=== PATIENT | male | born 1975 | race Caucasian/White ===

== ENCOUNTER 2021-02-20 00:33 | Emergency (ER) | payer SELFPAY ==
--- NOTE | ~2021-02-20 | CT_ITS ---
EXAMINATION: CT ABDOMEN AND PELVIS WITHOUT CONTRAST CLINICAL INFORMATION: Left flank pain COMPARISON: None TECHNIQUE: Multidetector volumetric imaging was performed from the superior aspect of the liver through the pubic symphysis. Sagittal and coronal reformatted images were obtained on the technologist's workstation. This CT examination was performed using dose optimization techniques as appropriate, variously including the following: *Automated exposure control *Adjustment of mA and/or kV according to patient size (this includes techniques or standardized protocols for targeted exams where dose is matched to indication/reason for exam; i.e. extremities or head) *Use of iterative reconstruction technique DLP: 1117 mGy-cm FINDINGS: LUNG BASES: The visualized lung bases are unremarkable. LIVER, GALLBLADDER, AND BILIARY TREE: The liver is normal in size, shape, and attenuation. No focal hepatic lesion or biliary ductal dilatation is present. Gallbladder unremarkable. PANCREAS: Unremarkable. SPLEEN: Unremarkable. ADRENAL GLANDS: Unremarkable. KIDNEYS AND URETERS: There is a 4 mm calculus within the distal left ureter, approximately 1 cm proximal to the ureterovesical junction associated mild upstream hydroureter and pelvocaliectasis, along with mild perinephric stranding. No additional urinary calculi. BLADDER: Unremarkable. GASTROINTESTINAL TRACT: The small and large bowel are unremarkable. The appendix is unremarkable. ABDOMINAL WALL: No significant hernia is appreciated. LYMPH NODES: Normal. VASCULAR: Unremarkable. PELVIC VISCERA: Unremarkable. OSSEOUS STRUCTURES: Unremarkable. CT/CT abdomen pelvis wo con IMPRESSION: There is a 4 mm calculus within the distal left ureter, 1 cm proximal to the ureterovesical junction associated mild upstream hydroureter and pelvocaliectasis.
[2021-02-20] MEDS: Acetaminophen 325 MG TABLET 650 MG PO (01:20)
[2021-02-20 01:21] VITALS: BP 168/93; PULSE 88; RESP 20; TEMP 36.6; O2SAT 96; BMI 36.9
[2021-02-20 01:26] LABS: Appearance Urine CLEAR; Color Urine YELLOW; Glucose Urine UA NEG (NEG); Leukocyte Esterase Urine NEG (NEG); Nitrite Urine NEG (NEG); Specific Gravity - Urine 1.025 (1.005-1.025); UACC Culture Trigger NO; Urine Blood 1+ (NEG); Urine Ketones NEG (NEG); Urine Protein NEG (NEG-TRACE)
[2021-02-20 01:43] LABS: Bacteria Urine 1+ /LPF; Mucus Urine 1+ /LPF; Squamous Epithelial Cell Urine 1+ /LPF
[2021-02-20 04:13] LABS: MANUAL DIFF FLAG NO
[2021-02-20 04:14] LABS: Basophils Absolute Auto 0.1 X10*3/uL (0.0-0.2); Basophils Percent Auto 0.5 % (0-2); Eosinophils Absolute Auto 0.1 X10*3/uL (0.0-0.4); Hematocrit 40.6 % (42.0-52.0); Hemoglobin 14.4 g/dl (14.0-18.0); Imm Gran Abs Auto 0.02 X10*3/uL (0.00-0.03); Imm Gran Pct Auto 0.2 % (0.0-0.4); Lymphocytes Absolute Auto 2.2 X10*3/uL (1.2-4.9); Lymphocytes Percent Auto 22.7 % (20-40); Mean Corpuscular HGB Conc 35.5 g/dl (31.0-36.0); Mean Corpuscular Hemoglobin 31.7 pg (27.0-33.0); Mean Corpuscular Volume 89.4 fL (80.0-98.0); Mean Platelet Volume 9.1 fL (9.4-12.4); Monocytes Absolute Auto 0.8 X10*3/uL (0.1-1.2); Monocytes Percent Auto 8.5 % (2-11); Neutrophils Absolute Auto 6.4 x10*3/uL (2.0-8.3); Neutrophils Percent Auto 67.1 % (45-73); Platelet Count 229 X10*3/uL (160-400); Red Blood Count 4.54 X10*6/uL (4.60-5.80); Red Cell Distribution Width 12.4 % (11.0-16.0); White Blood Count 9.5 X10*3/uL (4.8-10.8)
[2021-02-20 04:44] LABS: Alanine Aminotransferase 88 U/L (0-40); Albumin Level 4.4 g/dL (3.5-5.0); Alkaline Phosphatase 103 U/L (39-117); Anion Gap 13 (12-20); Aspartate Amino Transferase 39 U/L (5-37); Bilirubin Total 0.5 mg/dL (0.0-1.0); Blood Urea Nitrogen 17 mg/dL (9-16); Calcium 9.3 mg/dL (8.4-10.2); Carbon Dioxide 21 mmol/L (22-29); Chloride 110 mmol/L (96-108); Creatinine Clr Calc Pharmacy 115.6; Estimated Glomerular Filt Rate > 60; Glucose Random 106 mg/dL (60-115); Potassium 4.2 mmol/L (3.3-5.1); Sodium 140 mmol/L (135-145); Total Protein 7.7 g/dL (6.5-8.0)
--- NOTE | 2021-02-20 05:43 | ED.MALEGU ---
HPI - Male Genitourinary General Chief complaint: Urogenital-Male Stated complaint: stomach pain Time Seen by Provider: 02/20/21 05:34 Source: patient Mode of arrival: ambulatory Limitations: no limitations History of Present Illness HPI Narrative: Patient comes to the emergency room complaining left lower quadrant pain, mild dysuria, left inguinal pain for 3 days. Patient states that he has history of UTIs. Related Data Previous Rx's Medication Instructions Recorded ketorolac 10 mg tablet 10 mg PO QID PRN 5 Days #14 tab 02/20/21 ondansetron HCl 4 mg tablet 4 mg PO Q8H PRN #10 tab 02/20/21 (Zofran) tamsulosin 0.4 mg capsule 0.4 mg PO DAILY #7 cap 02/20/21 Allergies Allergy/AdvReac Type Severity Reaction Status Date / Time No Known Allergies Allergy Verified 02/20/21 01:04 [No Known Allergies*] Review of Systems Review of Systems: Constitutional : No Weight loss, No Fever, No Chills, No Night Sweats, No Fatigue, No Malaise ENT/Mouth : No Hearing loss, No Ear Pain, No Nasal Congestion, No Sinus Pain, No Hoarseness, No sore throat, No Rhinorrhea, No Swallowing Difficulty Eyes: No Eye Pain, No Swelling, No Redness, No Foreign Body, No Discharge, No Vision Changes Cardiovascular : No Chest Pain, No SOB, No Dyspnea on Exertion, No Orthopnea, No Edema, No Palpitations Respiratory : No Cough, No Sputum, No Wheezing, No Smoke Exposure, No Dyspnea Gastrointestinal : No Nausea, No Vomiting, No Diarrhea, No Constipation, complaining of intermittent left lower abdominal/flank Pain, No Hematochezia, No Melena Genitourinary : no irregular bleeding, complaining of dysuria and urinary frequency No Hematuria, No Urinary Incontinence, No Urgency, No Flank Pain, No Urinary Flow Changes, No Hesitancy Musculoskeletal : No joint pain, No Myalgias, No Joint Swelling Skin : No Skin Lesions, No rash Neuro : No Weakness, No Numbness, No Paresthesias, No Loss of Consciousness, No Dizziness, No Headache Psych : No Anxiety/Panic, No Depression, No SI/HI/AH/VH, No Social Issues, Heme/Lymph: No Bruising, No Bleeding,No Lymphadenopathy Endocrine : No Polyuria, No Polydipsia, No Temperature Intolerance PMFSH Social History Social History Advance Directives: No Physical Exam Vital Signs: Vital Signs: Last Vital Signs Temp 98 F 02/20/21 01:21 Pulse 88 02/20/21 01:21 Resp 20 02/20/21 01:21 BP 168/93 H 02/20/21 01:21 Pulse Ox 96 02/20/21 01:21 BMI result Body Mass Index 36.9 Const: Other: Appearance: Alert. Oriented X3. No acute distress. Well-appearing Eyes: Pupils equal, round and reactive to light. ENT: Pharynx normal. Neck: Normal inspection. Neck supple. No lymph nodes noted. No crepitus CVS: Normal heart rate and rhythm. Pulses normal. Normal S1 and S2 Respiratory: No respiratory distress. Breath sounds normal. No Wheezing. No rales Abdomen: Soft and nontender. No rigidity. No distention. , complaining of left lower quadrant pain on deep palpation Back: No CVA tenderness Skin: Skin warm and dry. Normal skin color. Normal skin turgor. Extremities: No lower extremity edema. No lower extremity edema. No Lacerations. No Rash Neuro: Oriented X 3. No motor deficit. No sensory deficit. Moving all extermities. No slurred speech. Course Course Course Narrative: I discussed with the patient that he has a 4 mm calculus in the left distal ureter. MDM - Male Genitourinary Lab Data Result diagrams: 02/20/21 04:06 02/20/21 04:06 Labs: Lab Results 02/20/21 02/20/21 02/20/21 Range/Units 01:07 04:06 04:06 WBC 9.5 (4.8-10.8) X10*3/uL RBC 4.54 L (4.60-5.80) X10*6/uL Hgb 14.4 (14.0-18.0) g/dl Hct 40.6 L (42.0-52.0) % MCV 89.4 (80.0-98.0) fL MCH 31.7 (27.0-33.0) pg MCHC 35.5 (31.0-36.0) g/dl RDW 12.4 (11.0-16.0) % Plt Count 229 (160-400) X10*3/uL MPV 9.1 L (9.4-12.4) fL Immature Gran % (Auto) 0.2 (0.0-0.4) % Neut % (Auto) 67.1 (45-73) % Lymph % (Auto) 22.7 (20-40) % [place] % (Auto) 8.5 (2-11) % Eos % (Auto) 1.0 (0-4) % Baso % (Auto) 0.5 (0-2) % Lymph # (Auto) 2.2 (1.2-4.9) X10*3/uL [place] # (Auto) 0.8 (0.1-1.2) X10*3/uL Eos # (Auto) 0.1 (0.0-0.4) X10*3/uL Baso # (Auto) 0.1 (0.0-0.2) X10*3/uL Abs Immat Gran (auto) 0.02 (0.00-0.03) X10*3/uL Absolute Neuts (auto) 6.4 (2.0-8.3) x10*3/uL Absolute Nucleated RBC 0.000 (0.0-0.012) X10*3/uL Nucleated RBC % (auto) 0.0 (0.0-0.2) /100WBC Sodium 140 (135-145) mmol/L Potassium 4.2 (3.3-5.1) mmol/L Chloride 110 H (96-108) mmol/L Carbon Dioxide 21 L (22-29) mmol/L Anion Gap 13 (12-20) BUN 17 H (9-16) mg/dL Creatinine 1.15 (0.5-1.4) mg/dL Estim Creat Clear Calc 115.6 Estimated GFR > 60 Random Glucose 106 (60-115) mg/dL Calcium 9.3 (8.4-10.2) mg/dL Total Bilirubin 0.5 (0.0-1.0) mg/dL AST 39 H (5-37) U/L ALT 88 H (0-40) U/L Alkaline Phosphatase 103 (39-117) U/L Total Protein 7.7 (6.5-8.0) g/dL Albumin 4.4 (3.5-5.0) g/dL Urine Color YELLOW Urine Appearance CLEAR Urine pH 6.0 (5.0-8.0) Ur Specific [place] 1.025 (1.005-1.025) Urine Protein NEG (NEG-TRACE) MG/DL Urine Glucose (UA) NEG (NEG) MG/DL Urine Ketones NEG (NEG) MG/DL Urine Blood 1+ H (NEG) Urine Nitrite NEG (NEG) Ur Leukocyte Esterase NEG (NEG) Urine RBC 1-4 (0) /HPF Urine WBC 1-4 (0-4) /HPF Ur Squamous Epith Cells 1+ /LPF Urine Bacteria 1+ /LPF Urine Mucus 1+ /LPF Discharge Plan Discharge Clinical Impression: Kidney stone Patient Disposition: Home, Self-Care Instructions: Kidney Stones (ED) Additional Instructions: Please follow-up with your primary care physician tomorrow. If you have any worsening or new symptoms, please return to the emergency room or call 911 Prescriptions: New tamsulosin 0.4 mg capsule 0.4 mg PO DAILY Qty: 7 RF: 0 ketorolac 10 mg tablet 10 mg PO QID PRN (Reason: pain) 5 Days Qty: 14 RF: 0 ondansetron HCl [Zofran] 4 mg tablet 4 mg PO Q8H PRN (Reason: nausea and vomiting) Qty: 10 RF: 0 Referrals: Fili Luong MD [Physician] - 2 days
== END 2021-02-20 07:19 | disposition home or self-care (01) ==
PROVIDERS: Emergency Provider Emergency Medicine; PCP Internal Medicine
DX: N13.2 Hydronephrosis with renal and ureteral calculous obstruction (principal); R10.32 Left lower quadrant pain; Z87.440 Personal history of urinary (tract) infections; Z87.442 Personal history of urinary calculi
CPT/HCPCS: 36415; 74176; 80053; 81001; 85025; 96374; 99283; 99284

== ENCOUNTER 2021-02-22 10:36 | Emergency (ER) | payer SELFPAY ==
--- NOTE | ~2021-02-22 | XR_ITS ---
EXAMINATION: XR ABDOMEN KUB CLINICAL INDICATION: Kidney stone. COMPARISON: KUB 02/22/2021 TECHNIQUE: AP view of the abdomen. FINDINGS: There is a 2 mm radiopaque calculi in the left lower pelvis correspond to left distal ureteral stone on CT 02/20/2021. There is a left mid pelvis phlebolith concordant with CT finding. There is no radiopaque additional calculi. There is no organomegaly. There is scattered stool in the right colon suggesting mild constipation. No gross bony abnormality.. XR/XR abdomen 1V IMPRESSION: 2 mm nonobstructive radiopaque calculi left distal ureter.
[2021-02-22 10:44] VITALS: BP 146/83; PULSE 89; RESP 19; TEMP 36.6; O2SAT 99; BMI 37.5
--- NOTE | 2021-02-22 11:12 | ED.MALEGU ---
HPI - Male Genitourinary General Chief complaint: Urogenital-Male Stated complaint: kidney stone Time Seen by Provider: 02/22/21 10:51 Source: patient Mode of arrival: ambulatory Limitations: no limitations History of Present Illness HPI Narrative: 45-year-old male presents to emergency department complaining of right flank pain. Patient has known kidney stone 3 mm that was diagnosed 2 days ago. Patient states the pain has been tolerable with Toradol that he was sent home with that this morning he doubled over in pain. He states pain is little better at this time he denies fevers chills states he also feels like he has to urinate all times that he has dribbling. States he has never had this problem in the past he has not followed up with urology. He is vaccinated for COVID with [employer] and had a booster with [employer]. Complaint: dysuria Related Data Previous Rx's Medication Instructions Recorded ketorolac 10 mg tablet 10 mg PO QID PRN 5 Days #14 tab 02/20/21 ondansetron HCl 4 mg tablet 4 mg PO Q8H PRN #10 tab 02/20/21 (Zofran) tamsulosin 0.4 mg capsule 0.4 mg PO DAILY #7 cap 02/20/21 prednisone 20 mg tablet 20 mg PO DAILY 5 Days #5 tab 02/22/21 tamsulosin 0.4 mg capsule 0.4 mg PO DAILY 7 Days #7 cap 02/22/21 Allergies Allergy/AdvReac Type Severity Reaction Status Date / Time No Known Allergies Allergy Verified 02/20/21 01:04 [No Known Allergies*] Review of Systems Review of Systems: Review of systems: General: Patient denies any fever chills recent illness or falls Musculoskeletal: Denies back pain or body aches or other injuries HEENT: denies headache, runny nose, ear pain Respiratory: denies shortness of breath, cough Cardiovascular: no chest pain or palpitations : dysuria, frequency Abdomen: no nausea vomiting he does have Right flank abdominal pain Extremities: no swelling, no pain Skin: no diaphoresis Yes all other systems are reviewed and are negative [facility] Past Medical History Medical History (Updated 02/22/21 @ 12:53 by Hunter Jack DO) Asthma High cholesterol Kidney stones Social History Social History Alcohol intake: never Patient Tobacco Use Status: Never used Tobacco Use of substances other than those prescribed or required for medical reasons: No Advance Directives: No Advance Directives Information Provided: Yes Physical Exam Vital Signs: Vital Signs: Last Vital Signs Temp 97.8 F 02/22/21 11:45 Pulse 74 02/22/21 11:45 Resp 18 02/22/21 11:45 BP 146/83 H 02/22/21 10:44 Pulse Ox 96 02/22/21 11:45 BMI result Body Mass Index 37.5 General: Well-appearing well-nourished in no signs of distress HEENT: Normocephalic atraumatic Neck: No signs of JVD, no masses no tenderness or lymphadenopathy Cardiovascular: Regular rate and rhythm Respiratory: Clear to auscultation bilaterally Abdomen: Soft nontender no masses no CVA tenderness. Extremities: Normal pedal pulses no signs of edema Skin: Dry warm no rashes Back: No tenderness full ROM MDM - Male Genitourinary MDM Narrative Medical decision making narrative: concern for kidney stone repeat the urinalysis patient not on antibiotics and Toradol. I will give a dose of IV Toradol as well as morphine. I will check the location on the stone and get a flat upright XR of the abdomen. to see if I can see was found has migrated. Patient did feel better with morphine and Toradol. Patient is okay the plan to go home I offered morphine patient is okay without taking morphine home he will continue Tylenol ibuprofen and will follow up with urologist. Differential Diagnosis Differential diagnosis: Likely urinary tract infection Lab Data Result diagrams: 02/22/21 11:53 02/22/21 11:53 Labs: Lab Results 02/22/21 02/22/21 02/22/21 Range/Units 11:49 11:53 11:53 WBC 11.6 H (4.8-10.8) X10*3/uL RBC 4.14 L (4.60-5.80) X10*6/uL Hgb 13.1 L (14.0-18.0) g/dl Hct 36.4 L (42.0-52.0) % MCV 87.9 (80.0-98.0) fL MCH 31.6 (27.0-33.0) pg MCHC 36.0 (31.0-36.0) g/dl RDW 11.9 (11.0-16.0) % Plt Count 205 (160-400) X10*3/uL MPV 9.3 L (9.4-12.4) fL Immature Gran % (Auto) 0.4 (0.0-0.4) % Neut % (Auto) 83.4 H (45-73) % Lymph % (Auto) 10.3 L (20-40) % [place] % (Auto) 5.3 (2-11) % Eos % (Auto) 0.3 (0-4) % Baso % (Auto) 0.3 (0-2) % Lymph # (Auto) 1.2 (1.2-4.9) X10*3/uL [place] # (Auto) 0.6 (0.1-1.2) X10*3/uL Eos # (Auto) 0.0 (0.0-0.4) X10*3/uL Baso # (Auto) 0.0 (0.0-0.2) X10*3/uL Abs Immat Gran (auto) 0.05 H (0.00-0.03) X10*3/uL Absolute Neuts (auto) 9.6 H (2.0-8.3) x10*3/uL Absolute Nucleated RBC 0.000 (0.0-0.012) X10*3/uL Nucleated RBC % (auto) 0.0 (0.0-0.2) /100WBC Sodium 139 (135-145) mmol/L Potassium 4.3 (3.3-5.1) mmol/L Chloride 106 (96-108) mmol/L Carbon Dioxide 25 (22-29) mmol/L Anion Gap 12 (12-20) BUN 17 H (9-16) mg/dL Creatinine 1.32 (0.5-1.4) mg/dL Estim Creat Clear Calc 101.7 Estimated GFR 59 Random Glucose 107 (60-115) mg/dL Calcium 8.9 (8.4-10.2) mg/dL Total Bilirubin 0.8 (0.0-1.0) mg/dL Direct Bilirubin 0.3 (0.0-0.5) mg/dL AST 24 (5-37) U/L ALT 51 H (0-40) U/L Alkaline Phosphatase 92 (39-117) U/L Total Protein 7.3 (6.5-8.0) g/dL Albumin 4.3 (3.5-5.0) g/dL Lipase 22 (8-78) U/L Urine Color YELLOW Urine Appearance CLEAR Urine pH 6.0 (5.0-8.0) Ur Specific [place] 1.020 (1.005-1.025) Urine Protein TRACE (NEG-TRACE) MG/DL Urine Glucose (UA) NEG (NEG) MG/DL Urine Ketones 5 (NEG) MG/DL Urine Blood 3+ H (NEG) Urine Nitrite NEG (NEG) Ur Leukocyte Esterase NEG (NEG) Urine RBC 15-29 H (0) /HPF Urine WBC 1-4 (0-4) /HPF Ur Squamous Epith Cells TRACE /LPF Urine Bacteria NONE /LPF Urine Mucus NONE /LPF Discharge Plan Discharge Clinical Impression: Kidney stone on left side Patient Disposition: Home, Self-Care Instructions: Kidney Stones (ED) Additional Instructions: Please call follow-up with If you have any other concerns please do not hesitate to come back to emergency room Prescriptions: No Action prednisone 20 mg tablet 20 mg PO DAILY 5 Days Qty: 5 RF: 0 tamsulosin 0.4 mg capsule 0.4 mg PO DAILY 7 Days Qty: 7 RF: 0 tamsulosin 0.4 mg capsule 0.4 mg PO DAILY Qty: 7 RF: 0 ketorolac 10 mg tablet 10 mg PO QID PRN (Reason: pain) 5 Days Qty: 14 RF: 0 ondansetron HCl [Zofran] 4 mg tablet 4 mg PO Q8H PRN (Reason: nausea and vomiting) Qty: 10 RF: 0
[2021-02-22 11:45] VITALS: PULSE 74; RESP 18; TEMP 36.6; O2SAT 96
--- NOTE | 2021-02-22 11:56 | PC.NURSE ---
reports sudden improvement in pain. aware ofplan of care
[2021-02-22] MEDS: 0.9 % Sodium Chloride 500 ML 999 ML IV (11:57)
[2021-02-22 12:06] LABS: MANUAL DIFF FLAG NO
[2021-02-22 12:06] LABS: Appearance Urine CLEAR; Color Urine YELLOW; Glucose Urine UA NEG (NEG); Leukocyte Esterase Urine NEG (NEG); Nitrite Urine NEG (NEG); UACC Culture Trigger NO; Urine Blood 3+ (NEG); Urine Ketones 5 MG/DL (NEG); Urine Protein TRACE MG/DL (NEG-TRACE)
[2021-02-22 12:07] LABS: Basophils Percent Auto 0.3 % (0-2); Eosinophils Percent Auto 0.3 % (0-4); Hematocrit 36.4 % (42.0-52.0); Hemoglobin 13.1 g/dl (14.0-18.0); Imm Gran Abs Auto 0.05 X10*3/uL (0.00-0.03); Imm Gran Pct Auto 0.4 % (0.0-0.4); Lymphocytes Absolute Auto 1.2 X10*3/uL (1.2-4.9); Lymphocytes Percent Auto 10.3 % (20-40); Mean Corpuscular Hemoglobin 31.6 pg (27.0-33.0); Mean Corpuscular Volume 87.9 fL (80.0-98.0); Mean Platelet Volume 9.3 fL (9.4-12.4); Monocytes Absolute Auto 0.6 X10*3/uL (0.1-1.2); Monocytes Percent Auto 5.3 % (2-11); Neutrophils Absolute Auto 9.6 x10*3/uL (2.0-8.3); Neutrophils Percent Auto 83.4 % (45-73); Platelet Count 205 X10*3/uL (160-400); Red Blood Count 4.14 X10*6/uL (4.60-5.80); Red Cell Distribution Width 11.9 % (11.0-16.0); White Blood Count 11.6 X10*3/uL (4.8-10.8)
[2021-02-22 12:23] LABS: Squamous Epithelial Cell Urine TRACE /LPF
[2021-02-22 12:32] LABS: Alanine Aminotransferase 51 U/L (0-40); Albumin Level 4.3 g/dL (3.5-5.0); Alkaline Phosphatase 92 U/L (39-117); Anion Gap 12 (12-20); Aspartate Amino Transferase 24 U/L (5-37); Bilirubin Direct 0.3 mg/dL (0.0-0.5); Bilirubin Total 0.8 mg/dL (0.0-1.0); Blood Urea Nitrogen 17 mg/dL (9-16); Calcium 8.9 mg/dL (8.4-10.2); Carbon Dioxide 25 mmol/L (22-29); Chloride 106 mmol/L (96-108); Creatinine Clr Calc Pharmacy 101.7; Estimated Glomerular Filt Rate 59; Glucose Random 107 mg/dL (60-115); Lipase 22 U/L (8-78); Potassium 4.3 mmol/L (3.3-5.1); Sodium 139 mmol/L (135-145); Total Protein 7.3 g/dL (6.5-8.0)
== END 2021-02-22 13:05 | disposition home or self-care (01) ==
PROVIDERS: Emergency Provider Student in an Organized Health Care Education/Training Program; PCP Internal Medicine
DX: N20.2 Calculus of kidney with calculus of ureter (principal); R10.9 Unspecified abdominal pain; Z87.442 Personal history of urinary calculi
CPT/HCPCS: 36415; 74018; 80048; 80076; 81001; 83690; 85025; 96374; 96375; 99284

== ENCOUNTER 2023-10-12 23:26 | Emergency (ER) | payer OTHER, SELFPAY ==
[2023-10-12 23:32] VITALS: BP 153/87; PULSE 83; RESP 18; TEMP 37; O2SAT 97; BMI 34.8
--- OUTSIDE RECORDS SUMMARY | 2023-10-12 23:53 | XMS_ITS | Continuity of Care Document ---
Author Organization [facility] Primary [facility] [place] Address [address] [place] [address]- Care Team Providers Care Founder And Chief Technical Officer Name Role Phone Ariana HUNTER, Nilton Novoa Primary Care Physician Encounter [facility] NBR [id number] Date(s): 04/11/20 - 05/11/20 [facility] [place] [address] [place] [address]- Attending Physician: Pietro Hernandez Admitting Physician: AdmtrPietro Referring Physician: AdmtrPietro Allergies, Adverse Reactions, Alerts No Known Medication Allergies Medications atorvastatin 40 mg oral tablet 1 tablet = 40 mg, By Mouth, Daily, # 90 tablet, 1 Refills, Maintenance, 12/14/19 15:47:00 EDT, Tablet, [id number], 176, cm, 10/23/18 14:42:00 EDT, Height, 117, kg, 09/28/18 15:21:00 EDT, Dry Weight Start Date: 12/14/19 Status: Ordered ProAir RespiClick 90 mcg/inh inhalation powder 2 puffs, Inhalation, Every 4 hours, PRN as needed, # 1 each, 3 Refills, Maintenance, 07/10/18 8:38:00 EDT, Powder, 2 puffs Inhalation Every 4 hours,PRN:as needed Start Date: 07/10/18 Status: Ordered Problem List Condition Effective Dates Status Health Status Inform ant Hypercholesterolemia(Confirmed) Active Hyperglycemia(Confirmed) Active Paroxysmal supraventricular tachycardia(Confirmed) Active Fatty liver(Confirmed) Active Social History Social History Type Response Smoking Status Tobacco user in hous ehold: No;Never (less than 100 in lifetime) entered on: 09/22/18 Sex
--- OUTSIDE RECORDS SUMMARY | 2023-10-12 23:53 | XMS_ITS | Continuity of Care Document ---
Author Organization [facility] Address [address] [place] [id number] Care Team Providers Care Loom Checker Name Role Phone Ariana HUNTER, Nilton Novoa Primary Care Physician Encounter [facility] [id number] Date(s): 09/16/22 - 10/16/[address] [id number] Attending Physician: Pietro Hernandez Admitting Physician: AdmPietro izaguirre Referring Physician: Admtr ArArturo Allergies, Adverse Reactions, Alerts No Known Medication Allergies Immunizations Given and Recorded Vaccine Date Status Refusal Reason [id number] 12y+ bivalent booster vax 12/18/21 Recorded SARS-CoV-2 (COVID-19) mRNA BNT-162b2 vac 02/16/21 Recorded SARS-CoV-2 (COVID-19) Ad26 vaccine 05/29/20 Given Medications Carmen 24 Hour Allergy oral tablet 1 tablet, By Mouth, Daily, # 90 tablet, 0 Refills, Maintenance, 01/08/22 14:07:00 EST, Tablet, Partial fill upon patient request if the prescription is for a schedule II opioid drug. Start Date: 01/08/22 Status: Ordered atorvastatin 40 mg oral tablet 1 tablet, By Mouth, Daily, # 90 tablet, 1 Refills, Maintenance, 09/10/22 15:10:00 EDT, [id number], 176, cm, 06/21/22 14:47:00 EDT, Height Start Date: 09/10/22 Status: Ordered atorvastatin 40 mg oral tablet See Instructions, TAKE 1 TABLET BY MOUTH EVERY DAY, # 90 tablet, 3 Refills, Maintenance, 09/10/22 19:53:00 EDT, [id number], 176, cm, 06/21/22 14:47:00 EDT, Height Start Date: 09/10/22 Status: Ordered ProAir RespiClick 90 mcg/inh inhalation powder 2 puffs, Inhalation, Every 4 hours, PRN as needed, # 1 each, 3 Refills, Maintenance, 07/10/18 8:38:00 EDT, Powder, 2 puffs Inhalation Every 4 hours,PRN:as needed Start Date: 07/10/18 Status: Ordered Problem List Condition Confirmation Course Effective Dates Status Health Status Informant Hypercholesterolemia Confirmed Active Hyperglycemia Confirmed Active Paroxysmal supraventricular tachycardia Confirmed Active Severe obesity (BMI 35.0-39.9) with comorbidity Confirmed Active Fatty liver Confirmed Active 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
--- NOTE | 2023-10-13 01:50 | ED_ITS ---
HPI - Animal Bite General Chief Complaint: Animal Bite Stated Complaint: Dog Bite R Hand 10/12/23 Time Seen by Provider: 10/13/23 01:36 Source: patient Mode of arrival: ambulatory Limitations: no limitations History of Present Illness ED Provider: Dr. Kumar Tran HPI narrative: 47-year-old male with history of high cholesterol who presents emergency department for evaluation of a dog bite to his right hand. The patient has a 6-year-old dog and he states that the dog was chewing on a box. The patient tried to take the box away from the dog and the dog bit his right hand. The patient states that he did rinse the wound out with water. He had increased pain and swelling of the right hand therefore he came to the emergency department for evaluation. Patient states that his tetanus status is up-to-date. He states that his dog has been vaccinated against rabies and his dog does not go outside. He also states that his dog has not been ill in any way and he believes that this was a provoked attack since he was trying to take the box away from the dog. Related Data Previous Rx's ?Medication ?Instructions ?Recorded ketorolac 10 mg tablet 10 mg PO QID PRN pain 5 days #14 02/20/21 tabs ondansetron HCl 4 mg tablet 4 mg PO Q8H PRN nausea and 02/20/21 (Zofran) vomiting #10 tabs tamsulosin 0.4 mg capsule 0.4 mg PO DAILY #7 caps 02/20/21 prednisone 20 mg tablet 20 mg PO DAILY 5 days #5 tabs 02/22/21 tamsulosin 0.4 mg capsule 0.4 mg PO DAILY 7 days #7 caps 02/22/21 amoxicillin 875 mg-potassium 1 tab PO Q12H 5 days #10 tabs 10/13/23 clavulanate 125 mg tablet Allergies Allergy/AdvReac Type Severity Reaction Status Date / Time nut - unspecified Allergy Anaphylaxis Verified 10/12/23 23:32 Review of Systems 2 Review of Systems: Yes all other systems are reviewed and are negative [facility] Past Medical History Medical History (Updated 10/13/23 @ 01:53 by Kumar Tran MD) Asthma High cholesterol Kidney stones Social History Social History Alcohol intake: never Patient Tobacco Use Status: Never used Tobacco Advance Directives: No Advance Directives Information Provided: No Physical Exam ED Vital Signs: Vital Signs - 24 hr 10/12/23 23:32 Temperature 98.6 F Pulse Rate 83 Respiratory Rate 18 Blood Pressure 153/87 H Pulse Oximetry 97 Oxygen Delivery Method Room Air BMI result Body Mass Index 34.8 Exam General: Awake, alert, no distress Right hand: Patient has 2 puncture wounds to the dorsal aspect of the right hand over the 4th and 5th metacarpal areas, patient also has a hematoma to this area. The patient has good strength and good capillary refill of his fingers with full range of motion. Medical Decision Making Medical Decision Making [facility] Narrative: 47-year-old male with a history of high cholesterol who presents emergency department for evaluation of a dog bite to his right hand. The bite was provoked attack by his own dog. The patient's dog has not been ill and has been fully vaccinated against rabies. The dog also does not leave the house. The tetanus status up-to-date. Exam did reveal 2 puncture wounds with underlying hematoma and his hand is neurovascularly intact. Differential diagnosis: ?Includes but is not limited to : Dog bite puncture wounds, hematoma, tendon injuries, vascular injury, rabies exposure, tetanus exposure Patient was initially treated with the following: Augmentin 875/125 orally Course: The dog bites were irrigated here in the emergency department with water for 3 minutes. The patient was given his 1st dose of Augmentin and was started prophylactically on Augmentin 875/125 q.12 hours x5 days. He was advised to apply bacitracin twice a day and to keep the wound covered. He was given printed and verbal instructions and discharged home Admission/Observation Consideration of admission/observation: Escalation of care including admission/observation considered Prescription Management I considered prescription management with: Antibiotic Discharge Plan Discharge Clinical Impression: Dog bite Patient Disposition: Home, Self-Care Instructions: Animal Bite (ED) Additional Instructions: Apply bacitracin twice a day to the bite wounds Keep the wounds covered with gauze dressings A proximally 5 % of dog bites get infected and I am going to treat your prophylactically with Augmentin Take Augmentin (amoxicillin clavulanate) 875/125, 1 pill every 12 hours for 5 days. Take ibuprofen 200 mg pills, 2 pills every 6 hours as needed for pain or fever. Take Tylenol (acetaminophen) 500 mg pills, 2 pills every 6 hours as needed for pain or fever. Watch for signs of infection which include increased redness, increased swelling, increased pain, drainage of pus, fever, chills, weakness and fatigue. This is a low risk wound for rabies since your dog has been vaccinated and does not go outside. Prescriptions: New amoxicillin-pot clavulanate 875-125 mg tablet 1 tab PO Q12H 5 Days Qty: 10 0RF No Action prednisone 20 mg tablet 20 mg PO DAILY 5 Days Qty: 5 0RF tamsulosin 0.4 mg capsule 0.4 mg PO DAILY 7 Days Qty: 7 0RF tamsulosin 0.4 mg capsule 0.4 mg PO DAILY Qty: 7 0RF ketorolac 10 mg tablet 10 mg PO QID PRN (Reason: pain) 5 Days Qty: 14 0RF ondansetron HCl [Zofran] 4 mg tablet 4 mg PO Q8H PRN (Reason: nausea and vomiting) Qty: 10 0RF Print Language: Cymro
[2023-10-13] MEDS: Amoxicillin/Potassium Clav 875 MG TABLET PO (01:57)
[2023-10-13 02:47] VITALS: BP 140/86; PULSE 68; RESP 16; TEMP 37; O2SAT 96
== END 2023-10-13 02:48 | disposition home or self-care (01) ==
PROVIDERS: Emergency Provider Emergency Medicine Emergency Medical Services; PCP Internal Medicine
DX: S61.451A Open bite of right hand, initial encounter (principal); M79.641 Pain in right hand; W54.0XXA Bitten by dog, initial encounter; Y93.89 Activity, other specified; Y92.89 Other specified places as the place of occurrence of the external cause; Y99.8 Other external cause status
CPT/HCPCS: 99282; 99283